=== PATIENT | male | born 1985 | race Caucasian/White ===

== ENCOUNTER 2017-01-22 23:42 | Emergency (ER) | payer OTHER ==
[2017-01-22 23:50] VITALS: BP 156/62; PULSE 80; RESP 18; TEMP 98.9
[2017-01-22] MEDS ORDERED: LIDOCAINE VISCOUS 300 MG/15 ML CUP MUCOUS MEM STA (23:58)
--- NOTE | 2017-01-23 00:02 | ED ---
ENT HPI - General Chief complaint: Dental/Oral Stated complaint: Dental Pain Time Seen by Provider: 01/22/17 23:50 Source: patient, RN notes reviewed Mode of arrival: ambulatory Limitations: no limitations - History of Present Illness Initial comments: Patient is a 31-year-old male presents to the emergency room for evaluation of left lower dental pain. Patient states he began having dental pain about 2 weeks ago. Patient states he noticed an abscess forming over his left lower tooth. Patient states that the abscess began to drain. Patient states he noticed a second abscess forming in his front portion of his bottom teeth. Patient states abscess has not drained yet. Patient states he has not seen a dentist yet. Patient denies trouble swallowing. Patient denies fevers or chills. Patient denies headache or dizziness. Patient denies throat pain. Patient denies recent dental trauma. - Related Data Previous Rx's Medication Instructions Recorded HYDROcodone/APAP 5-325MG [[place] 1 tab PO Q6HR PRN #12 tab 01/23/17 5-325] Penicillin V Potassium [Pen Vee K] 500 mg PO QID #28 tab 01/23/17 Allergies Allergy/AdvReac Type Severity Reaction Status Date / Time No Known Allergies Allergy Verified 01/22/17 23:48 Review of Systems ROS Statement: Those systems with pertinent positive or pertinent negative responses have been documented in the HPI. ROS Other: All systems not noted in ROS Statement are negative. Past Medical History Past Medical History: No Reported History History of Any Multi-Drug Resistant Organisms: None Reported Past Surgical History: Adenoidectomy, Ear Surgery, Hernia Repair, Tonsillectomy Past Psychological History: No Psychological Hx Reported Smoking Status: Current every day smoker Past Alcohol Use History: None Reported Past Drug Use History: Marijuana General Exam - General Exam Comments Initial Comments: Sitting in exam room, no acute distress. Limitations: no limitations General appearance: alert, in no apparent distress Head exam: Present: atraumatic, normocephalic, normal inspection Expanded Mouth exam: Present: normal external inspection Teeth exam: Present: dental caries, dental tenderness # (19; 24/25), gingival enlargement (anterior portion of teeth #24/25 with slight fluctuance) Throat exam: normal inspection Neck exam: Present: normal inspection Respiratory exam: Absent: respiratory distress Extremities exam: Present: normal inspection Back exam: Present: normal inspection Neurological exam: Present: alert, oriented X3, CN II-XII intact, normal gait Psychiatric exam: Present: normal affect, normal mood Skin exam: Present: warm, dry, intact, normal color. Absent: rash Course Vital Signs 01/22/17 01/23/17 23:48 01:03 Temperature 98.9 F 98.9 F Pulse Rate 80 80 Respiratory 18 18 Rate Blood Pressure 156/62 156/62 O2 Sat by Pulse 98 98 Oximetry Procedures - Incision & Drainage Consent Obtained: verbal consent Site: other (dental abscess) Size (cm): 1 Anesthetic Used: lidocaine 1% (viscous lidocaine) Amount (mLs): 5 Sterile Field Used?: No Needle Aspiration Performed?: Yes I&D Drainage Obtained: Pus, Blood Patient Tolerated Procedure: well, no complications Medical Decision Making - Medical Decision Making Patient is a 31-year-old male presents to the emergency room for evaluation of dental abscess. Abscess was incised and drained. Patient placed on antibiotics and advised to follow-up with a dentist. Patient states he understands everything that was discussed with him. Return parameters discussed. Case discussed with Dr. Camarena. Disposition Clinical Impression: Pain, dental, Dental abscess Disposition: HOME SELF-CARE Condition: Good Instructions: Dental Abscess (ED), Toothache (ED) Additional Instructions: Please follow up with a dentist. If you do not have a dentist, you may contact [facility]. Phone number is [phone] for existing clients. For new clients you may call [phone]. Another option is you have is the [employer] [facility]. Phone number is [phone]. Medications as directed. Saltwater gargles. Cold fluids can sometimes help with pain as well. Return to the Emergency Room for any worsening or changing symptoms. Use cold compresses to the outside of the face. Prescriptions: HYDROcodone/APAP 5-325MG [[place] 5-325] 1 tab PO Q6HR PRN #12 tab PRN Reason: Pain Penicillin V Potassium [Pen Vee K] 500 mg PO QID #28 tab Referrals: None,Stated [Primary Care Provider] - 1-2 days Time of Disposition: 00:36
== END 2017-01-23 01:02 | disposition home or self-care (01) ==
LOC: EC 23:42
DX: K04.7 Periapical abscess without sinus (principal); F17.200 Nicotine dependence, unspecified, uncomplicated
CPT/HCPCS: 41800; 99282

== ENCOUNTER 2017-03-01 09:50 | Emergency (ER) | payer OTHER ==
--- NOTE | 2017-03-01 10:40 | ED ---
General Adult HPI - General Chief complaint: Wound/Laceration Stated complaint: LACERATION RT ARM Time Seen by Provider: 03/01/17 09:59 Source: patient, RN notes reviewed Mode of arrival: wheelchair Limitations: no limitations - Related Data Previous Rx's Medication Instructions Recorded Cephalexin [Keflex] 500 mg PO Q12HR 5 Days 03/01/17 Allergies Allergy/AdvReac Type Severity Reaction Status Date / Time No Known Allergies Allergy Verified 03/01/17 10:27 Review of Systems ROS Statement: Those systems with pertinent positive or pertinent negative responses have been documented in the HPI. ROS Other: All systems not noted in ROS Statement are negative. Past Medical History Past Medical History: No Reported History History of Any Multi-Drug Resistant Organisms: None Reported Past Surgical History: Adenoidectomy, Ear Surgery, Hernia Repair, Tonsillectomy Past Psychological History: No Psychological Hx Reported Smoking Status: Current every day smoker Past Alcohol Use History: Rare Past Drug Use History: Marijuana General Exam Limitations: no limitations Course Vital Signs 03/01/17 09:53 Temperature 97.2 F L Pulse Rate 97 Respiratory 18 Rate Blood Pressure 146/72 O2 Sat by Pulse 97 Oximetry Disposition Clinical Impression: Laceration Disposition: HOME SELF-CARE Condition: Good Instructions: Laceration (ED) Additional Instructions: Please return to the emergency room in 8-10 days to have sutures removed. Please watch for any signs of infection which may include increased pain, swelling, redness, fever or chills. Please return to emergency room for any signs of infection do occur. Please use clean soap and water over the area to prevent scabbing over your stitches. Please leave wound covered for the first 24-48 hours and then leave wound open to air. Please return to the emergency room for any other concerns. Prescriptions: Cephalexin [Keflex] 500 mg PO Q12HR 5 Days Referrals: None,Stated [Primary Care Provider] - 1-2 days Time of Disposition: 10:37
[2017-03-01 10:54] VITALS: BP 138/68; PULSE 80; RESP 15; TEMP 98.8
== END 2017-03-01 11:04 | disposition home or self-care (01) ==
LOC: EC 09:50
DX: S51.811A Laceration without foreign body of right forearm, initial encounter (principal); F17.200 Nicotine dependence, unspecified, uncomplicated; W45.8XXA Other foreign body or object entering through skin, initial encounter
CPT/HCPCS: 12001; 99282

== ENCOUNTER 2018-12-11 03:31 | Emergency (ER) | payer OTHER ==
[2018-12-11] MEDS ORDERED: MORPHINE SULFATE 4 MG/ML SYRINGE IVP STA (03:37)
[2018-12-11] MEDS ORDERED: ceFAZolin 1,000 MG in DEXTROSE/WATER 1 50ML.BAG IVPB STA (03:37)
[2018-12-11] MEDS ORDERED: DIPH,PERTUS(ACELL)TETVAC-LF 0.5 ML VIAL IM ONE (03:37)
[2018-12-11] MEDS ORDERED: MORPHINE SULFATE 2 MG/ML SYRINGE IVP STA (03:44)
[2018-12-11] MEDS ORDERED: HYDROmorphone 1 MG/ML 1 ML SYRINGE IVP STA ×2 (03:49→04:19)
[2018-12-11] MEDS ORDERED: SODIUM CHLORIDE 0.9% 1,000 ML IV STA ×2 (03:49)
[2018-12-11 03:52] VITALS: RESP 18; TEMP 98.2
[2018-12-11 03:57] VITALS: BP 162/103; PULSE 88
[2018-12-11 04:02] LABS: Basophils # (A) 0.1 k/uL (0-0.2); Basophils % (A) 1 %; Eosinophils # (A) 0.2 k/uL (0-0.7); Eosinophils % (A) 2 %; HCT 44.3 % (39.0-53.0); HGB 13.8 gm/dL (13.0-17.5); Lymphocytes % (A) 39 %; MCH 28.1 pg (25.0-35.0); MCV 90.6 fL (80.0-100.0); Mean Platelet Volume 6.7; Monocytes # (A) 0.7 k/uL (0-1.0); Monocytes % (A) 7 %; Neutrophils % (A) 49 %; Platelet Count 322 k/uL (150-450); RBC 4.89 m/uL (4.30-5.90); RDW 13.6 % (11.5-15.5); WBC 10.3 k/uL (3.8-10.6)
--- NOTE | 2018-12-11 04:07 | XR ---
EXAM: XR Right Hand Complete, 3 or More Views CLINICAL HISTORY: ITS.REASON XR Reason: Pain TECHNIQUE: Frontal, lateral and oblique views of the right hand. COMPARISON: No relevant prior studies available. FINDINGS: Bones/joints: Fracture/partial amputation injuries at the distal phalanges of the second and third digit. Soft tissues: Extensive deformity to the soft tissues of the right hand including prominent defects extending to the bone at the first digit on the second digit, and third digit. Ill-defined linear increased density foci within the soft tissues at the base of the second digit. Diffuse soft tissue air and palmar swelling. IMPRESSION: 1. Partial bony amputation at the second and third distal phalanges. 2. Severe soft tissue injury/deformity as noted, with partial degloving appearance of the first, second, and third digit. Nonspecific clustered linear densities at the palmar base of the second digit could suggest foreign bodies.
[2018-12-11 04:11] LABS: ALT 28 U/L (21-72); AST 26 U/L (17-59); Alcohol <10 mg/dL; Alkaline Phosphatase 56 U/L (38-126); Anion Gap 18 mmol/L; Blood Urea Nitrogen 11 mg/dL (9-20); Calcium 9.8 mg/dL (8.4-10.2); Carbon Dioxide 21 mmol/L (22-30); Chloride 102 mmol/L (98-107); Glucose 134 mg/dL (74-99); Potassium 3.6 mmol/L (3.5-5.1); Sodium 141 mmol/L (137-145); Total Bilirubin 0.8 mg/dL (0.2-1.3); Total Protein 7.7 g/dL (6.3-8.2)
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
[2018-12-11 04:16] LABS: Partial Thromboplastin Time 23.2 sec (22.0-30.0); Prothrombin Time 10.7 sec (9.0-12.0)
== END 2018-12-11 04:20 | disposition other institution (70) ==
LOC: EC 03:31
DX: S68.021A Partial traumatic metacarpophalangeal amputation of right thumb, initial encounter (principal); S68.120A Partial traumatic metacarpophalangeal amputation of right index finger, initial encounter; S68.122A Partial traumatic metacarpophalangeal amputation of right middle finger, initial encounter; F17.200 Nicotine dependence, unspecified, uncomplicated; W23.0XXA Caught, crushed, jammed, or pinched between moving objects, initial encounter; Y92.89 Other specified places as the place of occurrence of the external cause; Z23 Encounter for immunization
CPT/HCPCS: 36415; 86900; 86901; 80053; 84484; 85025; 85610; 85730; 86850; 73130; 90715; 99285; 96365; 96375 ×2; 96361; 90471; G0480; J2270 ×2; J1170; J0690; 80320

== ENCOUNTER 2019-12-14 04:59 | Emergency (ER) | payer OTHER ==
[2019-12-14 05:07] VITALS: BP 145/80; PULSE 75; RESP 20; TEMP 97.7
[2019-12-14] MEDS ORDERED: PENICILLIN VK 500MG STARTER 4 TAB BTL PO STA (05:43)
[2019-12-14] MEDS ORDERED: LIDOCAINE 2% INJ 20 MG/ML (20 ML MDV) SQ STA (05:43)
[2019-12-14] MEDS ORDERED: BUPIVACAINE (PF) 0.5% 30 ML VIAL SQ STA (05:43)
--- NOTE | 2019-12-14 06:17 | ED ---
ENT HPI - General Chief complaint: Dental/Oral Stated complaint: Oral Pain/Abcess Time Seen by Provider: 12/14/19 05:07 Source: patient, family Mode of arrival: ambulatory Limitations: no limitations - History of Present Illness MD complaint: tooth pain Onset/Timin -: hour(s) Severity: severe Severity scale (1-10): 8 Quality: aching Consistency: constant Improves with: cold therapy Worsens with: none Context- Dental: history of dental caries Associated Symptoms: gum swelling, toothache - Related Data Previous Rx's Medication Instructions Recorded Cephalexin [Keflex] 500 mg PO Q12HR 5 Days cap 03/01/17 Penicillin V Potassium [Pen Vee K] 500 mg PO Q6H #40 tablet 12/14/19 Allergies Allergy/AdvReac Type Severity Reaction Status Date / Time No Known Allergies Allergy Verified 12/14/19 05:06 Review of Systems ROS Statement: Those systems with pertinent positive or pertinent negative responses have been documented in the HPI. ROS Other: All systems not noted in ROS Statement are negative. Constitutional: Denies: fever, chills Eyes: Denies: eye pain ENT: Denies: throat pain Respiratory: Denies: dyspnea Neurological: Denies: headache Hematological/Lymphatic: Denies: easy bleeding Past Medical History Past Medical History: Hypertension, Thyroid Disorder History of Any Multi-Drug Resistant Organisms: None Reported Past Surgical History: Adenoidectomy, Ear Surgery, Hernia Repair, Orthopedic Surgery, Tonsillectomy Past Psychological History: No Psychological Hx Reported Smoking Status: Current every day smoker Past Alcohol Use History: Rare Past Drug Use History: Marijuana, Opiates, Prescription Drug Abuse General Exam Limitations: no limitations General appearance: alert, in no apparent distress Head exam: Present: atraumatic, normocephalic Eye exam: Present: normal appearance ENT exam: Present: mucous membranes moist Expanded Teeth exam: Present: dental caries, other (Dental abscess adjacent to tooth 19,20.) Throat exam: normal inspection Neck exam: Present: normal inspection, full ROM, other (There is no neck or sublingual fullness). Absent: meningismus, lymphadenopathy Neurological exam: Present: alert Skin exam: Present: warm, dry, intact, normal color. Absent: rash Course Vital Signs 12/14/19 05:02 Temperature 97.7 F Pulse Rate 75 Respiratory 20 Rate Blood Pressure 145/80 O2 Sat by Pulse 100 Oximetry Procedures - Incision & Drainage Consent Obtained: verbal consent Site: oral Anesthetic Used: benzocaine 0.25%, lidocaine 2% Scalpel Used: #11 I&D Drainage Obtained: Pus Patient Tolerated Procedure: well, no complications Disposition Clinical Impression: Dental abscess, Dental caries Disposition: HOME SELF-CARE Instructions (If sedation given, give patient instructions): Dental Abscess (ED), Toothache (ED) Prescriptions: Penicillin V Potassium [Pen Vee K] 500 mg PO Q6H #40 tablet Is patient prescribed a controlled substance at d/c from ED?: No Referrals: Valerio Van MD [Primary Care Provider] - 1-2 days
== END 2019-12-14 06:22 | disposition home or self-care (01) ==
LOC: EC 04:59
DX: K04.7 Periapical abscess without sinus (principal); K02.9 Dental caries, unspecified; F17.200 Nicotine dependence, unspecified, uncomplicated
CPT/HCPCS: 99282; 41800; J2001

== ENCOUNTER 2020-12-09 15:56 | Emergency (ER) | payer OTHER ==
[2020-12-09] MEDS ORDERED: fentaNYL (PF) 50 MCG/ML 2 ML AMP IVP PRN (16:03)
[2020-12-09] MEDS ORDERED: HYDROmorphone 1 MG/ML 1 ML SYRINGE IVP STA (16:06)
[2020-12-09] MEDS ORDERED: SODIUM CHLORIDE 0.9% 1,000 ML IV STA ×2 (16:08→16:40)
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
[2020-12-09] MEDS: KETAMINE 10 MG/ML 20 ML VIAL IV STA ×4 (16:17→16:55)
[2020-12-09 16:28] LABS: Basophils # (A) 0.1 k/uL (0-0.2); Basophils % (A) 1 %; Eosinophils # (A) 0.2 k/uL (0-0.7); Eosinophils % (A) 2 %; HCT 39.3 % (39.0-53.0); HGB 12.6 gm/dL (13.0-17.5); Lymphocytes # (A) 2.8 k/uL (1.0-4.8); Lymphocytes % (A) 25 %; MCH 28.4 pg (25.0-35.0); MCV 88.9 fL (80.0-100.0); Mean Platelet Volume 6.8; Monocytes # (A) 0.7 k/uL (0-1.0); Monocytes % (A) 6 %; Neutrophils % (A) 64 %; Platelet Count 334 k/uL (150-450); RBC 4.42 m/uL (4.30-5.90); RDW 13.5 % (11.5-15.5); WBC 10.9 k/uL (3.8-10.6)
[2020-12-09 16:37] LABS: Glucose,Whole Blood 98 mg/dL (75-99)
[2020-12-09 16:37] LABS: African American GFR (CKD) >90 (>60 ml/min/1.73 sqM); Anion Gap 10 mmol/L; Blood Urea Nitrogen 18 mg/dL (9-20); Calcium 9.5 mg/dL (8.4-10.2); Carbon Dioxide 25 mmol/L (22-30); Chloride 103 mmol/L (98-107); Glucose 190 mg/dL (74-99); Non-African American GFR(CKD) >90 (>60 ml/min/1.73 sqM); Potassium 4.2 mmol/L (3.5-5.1); Sodium 138 mmol/L (137-145)
[2020-12-09] MEDS ORDERED: KETAMINE 50 MG/ML 10 ML VIAL IV STA ×2 (16:37→16:54)
[2020-12-09 16:44] LABS: INR 0.9 (<1.2); Partial Thromboplastin Time 25.2 sec (22.0-30.0); Prothrombin Time 9.9 sec (9.0-12.0)
== END 2020-12-09 16:57 | disposition other institution (70) ==
LOC: EC 15:56
DX: T20.10XA Burn of first degree of head, face, and neck, unspecified site, initial encounter (principal); T22.211A Burn of second degree of right forearm, initial encounter; T22.212A Burn of second degree of left forearm, initial encounter; T24.131A Burn of first degree of right lower leg, initial encounter; T31.0 Burns involving less than 10% of body surface; X04.XXXA Exposure to ignition of highly flammable material, initial encounter
CPT/HCPCS: 36415; 80048; 85025; 85610; 85730; 99291; 96374; 96375; 96376; 96361; J3010; J1170

== ENCOUNTER 2021-09-24 17:22 | Observation (INO) | payer OTHER ==
--- NOTE | 2021-09-24 18:07 | ED ---
General Adult HPI - General Chief complaint: Recheck/Abnormal Lab/Rx Stated complaint: Jaundice Time Seen by Provider: 09/24/21 17:56 Source: patient, police, RN notes reviewed Mode of arrival: ambulatory Limitations: no limitations - History of Present Illness Initial comments: Patient is a pleasant 36-year-old male presenting [facility] emergency department [facility] for jaundice discoloration of the skin. Patient has no history of similar symptoms previously. No history of previous liver disease. A abad does not drink much alcohol. Patient does have history of IV drug use. Patient noticed darkness of the urine over the past week. Patient noticed skin discoloration approximately 3 days ago. Patient has mild abdominal bloating otherwise no pain. No diarrhea or vomiting. - Related Data Home Medications Medication Instructions Recorded Confirmed Mirtazapine [Remeron] 30 mg PO HS 09/24/21 09/24/21 QUEtiapine [SEROquel] 50 mg PO DAILY 09/24/21 09/24/21 QUEtiapine [SEROquel] 100 mg PO HS 09/24/21 09/24/21 hydrOXYzine pamoate [Vistaril] 100 mg PO TID 09/24/21 09/24/21 Allergies Allergy/AdvReac Type Severity Reaction Status Date / Time No Known Allergies Allergy Verified 09/24/21 19:32 Review of Systems ROS Statement: Those systems with pertinent positive or pertinent negative responses have been documented in the HPI. ROS Other: All systems not noted in ROS Statement are negative. Constitutional: Denies: fever, chills Eyes: Denies: eye pain ENT: Denies: ear pain Respiratory: Denies: cough, dyspnea Cardiovascular: Denies: chest pain Endocrine: Denies: fatigue Gastrointestinal: Reports: as per HPI. Denies: nausea, vomiting, diarrhea Genitourinary: Reports: as per HPI Musculoskeletal: Denies: back pain Skin: Reports: as per HPI, rash Neurological: Denies: weakness Past Medical History Past Medical History: Hypertension, Thyroid Disorder History of Any Multi-Drug Resistant Organisms: None Reported Past Surgical History: Adenoidectomy, Ear Surgery, Hernia Repair, Orthopedic Surgery, Tonsillectomy Past Psychological History: No Psychological Hx Reported Smoking Status: Never smoker Past Alcohol Use History: Rare Past Drug Use History: Marijuana, Opiates, Prescription Drug Abuse General Exam Limitations: no limitations General appearance: alert, in no apparent distress Head exam: Present: normocephalic Eye exam: Present: scleral icterus Neck exam: Present: normal inspection Respiratory exam: Present: normal lung sounds bilaterally Cardiovascular Exam: Present: regular rate, normal rhythm GI/Abdominal exam: Present: soft, normal bowel sounds. Absent: distended, tenderness, guarding, rebound, rigid Extremities exam: Present: normal inspection Neurological exam: Present: alert, oriented X3 Psychiatric exam: Present: normal affect, normal mood Skin exam: Present: other (Jaundice) Course Vital Signs 09/24/21 17:30 Temperature 98.8 F Pulse Rate 78 Respiratory 20 Rate Blood Pressure 159/81 O2 Sat by Pulse 100 Oximetry - Reevaluation(s) Reevaluation #1: 09/24/21 20:14 Case was discussed with Dr. Bailon who would prefer transfer secondary to no GI coverage. 09/24/21 20:25 Case was discussed with transfer team, nurse Arevalo at [facility] who would like to know covid status prior to discussing with their medical case worker for possible transfer. This is been ordered at this time[facility] [place] [facility] at this time. 09/24/21 20:26 Case will be endorsed to Dr. Raymundo for final disposition. Medical Decision Making - Lab Data Result diagrams: 09/24/21 18:43 09/24/21 18:43 Lab Results 09/24/21 09/24/21 09/24/21 Range/Units 18:43 18:43 18:43 WBC 7.3 (3.8-10.6) k/uL RBC 4.99 (4.30-5.90) m/uL Hgb 14.8 (13.0-17.5) gm/dL Hct 46.1 (39.0-53.0) % MCV 92.3 (80.0-100.0) fL MCH 29.6 (25.0-35.0) pg MCHC 32.1 (31.0-37.0) g/dL RDW 15.4 (11.5-15.5) % Plt Count 258 (150-450) k/uL MPV 7.6 Neutrophils % Not Reportable Neutrophils % (Manual) 45 % Band Neuts % (Manual) 5 % Lymphocytes % Not Reportable Lymphocytes % (Manual) 39 % Monocytes % Not Reportable Monocytes % (Manual) 7 % Eosinophils % Not Reportable Eosinophils % (Manual) 3 % Basophils % Not Reportable Basophils % (Manual) 1 % Neutrophils # Not Reportable Neutrophils # (Manual) 3.60 (1.3-7.7) k/uL Lymphocytes # Not Reportable Lymphocytes # (Manual) 2.85 (1.0-4.8) k/uL Monocytes # Not Reportable Monocytes # (Manual) 0.51 (0-1.0) k/uL Eosinophils # Not Reportable Eosinophils # (Manual) 0.22 (0-0.7) k/uL Basophils # Not Reportable Basophils # (Manual) 0.07 (0-0.2) k/uL Nucleated RBCs 0 (0-0) /100 WBC Manual Slide Review Performed Hypochromasia Slight Poikilocytosis (manual Present Target Cells Present Fragmented RBCs Present PT 11.7 (9.0-12.0) sec INR 1.1 (<1.2) APTT 27.3 (22.0-30.0) sec Sodium (137-145) mmol/L Potassium (3.5-5.1) mmol/L Chloride (98-107) mmol/L Carbon Dioxide (22-30) mmol/L Anion Gap mmol/L BUN (9-20) mg/dL Creatinine (0.66-1.25) mg/dL Est GFR (CKD-EPI)AfAm (>60 ml/min/1.73 sqM) Est GFR (CKD-EPI)NonAf (>60 ml/min/1.73 sqM) Glucose (74-99) mg/dL Calcium (8.4-10.2) mg/dL Total Bilirubin (0.2-1.3) mg/dL AST (17-59) U/L ALT (4-49) U/L Alkaline Phosphatase (38-126) U/L Total Protein (6.3-8.2) g/dL Albumin (3.5-5.0) g/dL Amylase (30-110) U/L Lipase (23-300) U/L Urine Color Dark Yellow Urine Appearance Clear (Clear) Urine pH 6.5 (5.0-8.0) Ur Specific [place] 1.020 (1.001-1.035) Urine Protein Negative (Negative) Urine Glucose (UA) Negative (Negative) Urine Ketones Negative (Negative) Urine Blood Negative (Negative) Urine Nitrite Negative (Negative) Urine Bilirubin 2+ H (Negative) Urine Urobilinogen 4.0 (<2.0) mg/dL Ur Leukocyte Esterase Negative (Negative) 09/24/21 Range/Units 18:43 WBC (3.8-10.6) k/uL RBC (4.30-5.90) m/uL Hgb (13.0-17.5) gm/dL Hct (39.0-53.0) % MCV (80.0-100.0) fL MCH (25.0-35.0) pg MCHC (31.0-37.0) g/dL RDW (11.5-15.5) % Plt Count (150-450) k/uL MPV Neutrophils % Neutrophils % (Manual) % Band Neuts % (Manual) % Lymphocytes % Lymphocytes % (Manual) % Monocytes % Monocytes % (Manual) % Eosinophils % Eosinophils % (Manual) % Basophils % Basophils % (Manual) % Neutrophils # Neutrophils # (Manual) (1.3-7.7) k/uL Lymphocytes # Lymphocytes # (Manual) (1.0-4.8) k/uL Monocytes # Monocytes # (Manual) (0-1.0) k/uL Eosinophils # Eosinophils # (Manual) (0-0.7) k/uL Basophils # Basophils # (Manual) (0-0.2) k/uL Nucleated RBCs (0-0) /100 WBC Manual Slide Review Hypochromasia Poikilocytosis (manual Target Cells Fragmented RBCs PT (9.0-12.0) sec INR (<1.2) APTT (22.0-30.0) sec Sodium 138 (137-145) mmol/L Potassium 4.4 (3.5-5.1) mmol/L Chloride 104 (98-107) mmol/L Carbon Dioxide 26 (22-30) mmol/L Anion Gap 8 mmol/L BUN 13 (9-20) mg/dL Creatinine 0.94 (0.66-1.25) mg/dL Est GFR (CKD-EPI)AfAm >90 (>60 ml/min/1.73 sqM) Est GFR (CKD-EPI)NonAf >90 (>60 ml/min/1.73 sqM) Glucose 134 H (74-99) mg/dL Calcium 9.0 (8.4-10.2) mg/dL Total Bilirubin 6.5 H (0.2-1.3) mg/dL AST 1281 H (17-59) U/L ALT 2135 H (4-49) U/L Alkaline Phosphatase 186 H (38-126) U/L Total Protein 7.1 (6.3-8.2) g/dL Albumin 3.9 (3.5-5.0) g/dL Amylase 64 (30-110) U/L Lipase 72 (23-300) U/L Urine Color Urine Appearance (Clear) Urine pH (5.0-8.0) Ur Specific [place] (1.001-1.035) Urine Protein (Negative) Urine Glucose (UA) (Negative) Urine Ketones (Negative) Urine Blood (Negative) Urine Nitrite (Negative) Urine Bilirubin (Negative) Urine Urobilinogen (<2.0) mg/dL Ur Leukocyte Esterase (Negative) - Radiology Data Radiology results: report reviewed (Ultrasound shows hepatomegaly. No gallstones or dilated ducts. No focal liver defect.) Disposition Clinical Impression: Acute hepatitis Disposition: OTHER INSTITUTION NOT DEFINED Is patient prescribed a controlled substance at d/c from ED?: No Referrals: None,Stated [Primary Care Provider] - 1-2 days Decision Time: 20:26 - Out of Hospital Transfer - Req. Specs Out of Hospital Transfer - Requested Specifics: Other Emergency Center
--- NOTE | 2021-09-24 19:03 | US ---
EXAMINATION TYPE: US gallbladder DATE OF EXAM: 09/24/2021 COMPARISON: NONE CLINICAL HISTORY: jaundice. Jaundice EXAM MEASUREMENTS: Liver Length: 22 cm Gallbladder Wall: 0.3 cm CBD: 0.3 cm Right Kidney: 10.0 x 4.7 x 5.3 cm Pancreas: 3mm duct visualized, tail obscured by overlying bowel gas Liver: Enlarged Gallbladder: Contracted, pt states he is NPO Evidence for sonographic Garcia's sign: NO CBD: wnl Right Kidney: No evidence of hydro, mid to lower pole gassed out IMPRESSION: No gallstones or dilated ducts. No focal liver defect. hepatomegaly.
[2021-09-24 19:17] LABS: HCT 46.1 % (39.0-53.0); HGB 14.8 gm/dL (13.0-17.5); Hypochromasia Slight; MCH 29.6 pg (25.0-35.0); MCHC 32.1 g/dL (31.0-37.0); MCV 92.3 fL (80.0-100.0); Mean Platelet Volume 7.6; Platelet Count 258 k/uL (150-450); RBC 4.99 m/uL (4.30-5.90); RDW 15.4 % (11.5-15.5); WBC 7.3 k/uL (3.8-10.6)
[2021-09-24 19:22] LABS: African American GFR (CKD) >90 (>60 ml/min/1.73 sqM); Albumin 3.9 g/dL (3.5-5.0); Alkaline Phosphatase 186 U/L (38-126); Amylase 64 U/L (30-110); Anion Gap 8 mmol/L; Blood Urea Nitrogen 13 mg/dL (9-20); Carbon Dioxide 26 mmol/L (22-30); Chloride 104 mmol/L (98-107); Glucose 134 mg/dL (74-99); Lipase 72 U/L (23-300); Non-African American GFR(CKD) >90 (>60 ml/min/1.73 sqM); Potassium 4.4 mmol/L (3.5-5.1); Sodium 138 mmol/L (137-145); Total Bilirubin 6.5 mg/dL (0.2-1.3); Total Protein 7.1 g/dL (6.3-8.2)
[2021-09-24 19:30] LABS: ALT 2135 U/L (4-49); AST 1281 U/L (17-59)
[2021-09-24 19:49] LABS: Appearance,Urine Clear (Clear); Bilirubin,Urine 2+ (Negative); Blood,Urine Negative (Negative); Color,Urine Dark Yellow; Glucose,Urine (UA) Negative (Negative); Ketones,Urine Negative (Negative); Leukocyte Esterase,Urine Negative (Negative); Nitrite,Urine Negative (Negative); PH, Urine 6.5 (5.0-8.0); Protein,Urine Negative (Negative)
[2021-09-24 20:00] LABS: Band Neutrophils % 5 %; Basophils # (M) 0.07 k/uL (0-0.2); Eosinophils # (M) 0.22 k/uL (0-0.7); Lymphocytes # (M) 2.85 k/uL (1.0-4.8); Monocytes # (M) 0.51 k/uL (0-1.0); Neutrophils % (M) 45 %; Nucleated Red Blood Cells 0 /100 WBC (0-0); Target Cells Present; Total Cells Counted 100
[2021-09-24 20:01] LABS: RBC Fragments Present
[2021-09-24 20:06] LABS: Poikilocytosis (M) Present
[2021-09-24 20:18] LABS: INR 1.1 (<1.2); Partial Thromboplastin Time 27.3 sec (22.0-30.0); Prothrombin Time 11.7 sec (9.0-12.0)
[2021-09-24 23:15] LABS: Lactic Acid, Venous 0.6 mmol/L (0.7-2.0)
[2021-09-24 23:16] LABS: Acetaminophen <10.0 ug/mL; Alcohol <10 mg/dL; Salicylate <1.0 mg/dL
--- NOTE | 2021-09-24 23:16 | CT ---
EXAMINATION TYPE: CT angio abdomen pelvis DATE OF EXAM: 09/24/2021 COMPARISON: None HISTORY: Pt is jaundice possible portal thrombosis. CT DLP: 754.4 mGycm Automated exposure control for dose reduction was used. CONTRAST: Performed with IV Contrast, patient injected with 100 mL of Isovue 370. Images obtained from the diaphragm to the floor the pelvis with IV contrast and Three-D postprocessed images. The contrast was Isovue 100 mL. FINDINGS: Lung bases are clear. There is no pleural effusion. Heart size is normal. There is no pericardial eff usion. Liver spleen and stomach pancreas appear intact. There is some fluid around the gallbladder. The bile ducts are not dilated. There is no adrenal mass. Kidneys show satisfactory contrast opacific ation. There is no hydronephrosis. Ureters are not dilated. There is no retroperitoneal adenopathy. T he bladder distends smoothly. There is no inguinal hernia. There is no mesenteric edema. There is no ascites or free air. There is no bowel obstruction. There i s retained fecal material in the large bowel. There is arterial contrast opacification of the abdominal aorta. There is arterial flow in the celiac artery and superior mesenteric artery. There is arterial flow in the renal and iliac and femoral art eries. There is no evidence of stenosis. There is no evidence of aneurysm or neovascularity. There is no contrast extravasation. The lumbar vertebrae are normal alignment. Posterior elements are intact there is no compression frac ture. Bony pelvis is intact. The hip joints are intact. Appendix is posterior and appears normal. IMPRESSION: No angiographic abnormality. There is some fluid around the gallbladder that could relate to cholecys titis. No focal liver defect. Unfortunately there is no venous phase exam and portal vein thrombosis cannot be evaluated on this exam. If there is persistent clinical indication contrast exam with delay ed venous phase images recommended. No evidence of enlarged portal venous system.
[2021-09-24 23:38] LABS: Phosphorus 4.5 mg/dL (2.5-4.5)
[2021-09-24 23:47] LABS: Hepatitis A Antibody IgM Nonreactive (Nonreactive); Hepatitis B Core IgM Reactive (Nonreactive); Hepatitis B Surface Antigen Nonreactive (Nonreactive); Hepatitis C IgG Antibody Reactive (Nonreactive)
--- NOTE | 2021-09-25 00:01 | US ---
EXAMINATION TYPE: US liver doppler DATE OF EXAM: 09/24/2021 COMPARISON: Same day US & CT CLINICAL HISTO RY: jaundice, thrombosis. Jaundice EXAM MEASUREMENTS: Liver Length: 21 cm Gallbladder Wall: 0.3 cm CBD: 0.4 cm Right Kidney: 10.0 x 4.5 x 5.5 cm RUQ ABDOMINAL ULTRASOUND Pancreas: 3mm panc duct visualized, tail obscured by overlying bowel gas Liver: Enlarged Gallbladder: lumen clear, wall thickness upper limits of normal ?possible small amount of pericholec ystic fluid Evidence for sonographic Garcia's sign: No CBD: wnl Right Kidney: wnl, lower pole gassed out Ascites noted? No LIVER DOPPLER ULTRASOUND Portal vein: wnl Flow direction: Hepatopetal Color flow patency seen within the main portal vein: Yes Main portal vein shows a monophasic waveform: Yes Color flow patency seen within the right portal vein: Yes Right portal vein shows a monophasic waveform:Yes Hepatic Artery: wnl Hepatic Veins: wnl Color flow patency seen within the right hepatic vein: Yes Color flow patency seen within the middle hepatic vein: Yes Color flow patency seen within the left hepatic vein: Yes IMPRESSION: There is no evidence of portal venous thrombosis. No focal liver defect. Mild hepatomegaly. No dilate d ducts. Small amount of pericholecystic fluid suggestive of some nonspecific inflammation.
[2021-09-25] MEDS ORDERED: ONDANSETRON 4 MG/2 ML VIAL IVP PRN (00:45)
[2021-09-25] MEDS ORDERED: LORazepam 2 MG/ML INJ IV PRN (00:45)
[2021-09-25] MEDS ORDERED: NALOXONE 0.4 MG/ML 1 ML VIAL IV PRN (00:45)
--- NOTE | 2021-09-25 00:48 | ED ---
Medical Decision Making - Medical Decision Making 36 male to the emergency department today. Patient will be admitted to our hospital for evaluation regarding significant hepatitis from both hepatitis B and hepatitis C, consult of infectious disease, IV hydration symptom management. Did speak with [facility] who did refer diffuse transfer at this point Spoke with patient updated and results and findings Patient is without complaint - Lab Data Result diagrams: 09/24/21 18:43 09/24/21 18:43 Lab Results 09/24/21 09/24/21 09/24/21 Range/Units 18:43 18:43 18:43 WBC 7.3 (3.8-10.6) k/uL RBC 4.99 (4.30-5.90) m/uL Hgb 14.8 (13.0-17.5) gm/dL Hct 46.1 (39.0-53.0) % MCV 92.3 (80.0-100.0) fL MCH 29.6 (25.0-35.0) pg MCHC 32.1 (31.0-37.0) g/dL RDW 15.4 (11.5-15.5) % Plt Count 258 (150-450) k/uL MPV 7.6 Neutrophils % Not Reportable Neutrophils % (Manual) 45 % Band Neuts % (Manual) 5 % Lymphocytes % Not Reportable Lymphocytes % (Manual) 39 % Monocytes % Not Reportable Monocytes % (Manual) 7 % Eosinophils % Not Reportable Eosinophils % (Manual) 3 % Basophils % Not Reportable Basophils % (Manual) 1 % Neutrophils # Not Reportable Neutrophils # (Manual) 3.60 (1.3-7.7) k/uL Lymphocytes # Not Reportable Lymphocytes # (Manual) 2.85 (1.0-4.8) k/uL Monocytes # Not Reportable Monocytes # (Manual) 0.51 (0-1.0) k/uL Eosinophils # Not Reportable Eosinophils # (Manual) 0.22 (0-0.7) k/uL Basophils # Not Reportable Basophils # (Manual) 0.07 (0-0.2) k/uL Nucleated RBCs 0 (0-0) /100 WBC Manual Slide Review Performed Hypochromasia Slight Poikilocytosis (manual Present Target Cells Present Fragmented RBCs Present PT 11.7 (9.0-12.0) sec INR 1.1 (<1.2) APTT 27.3 (22.0-30.0) sec Sodium (137-145) mmol/L Potassium (3.5-5.1) mmol/L Chloride (98-107) mmol/L Carbon Dioxide (22-30) mmol/L Anion Gap mmol/L BUN (9-20) mg/dL Creatinine (0.66-1.25) mg/dL Est GFR (CKD-EPI)AfAm (>60 ml/min/1.73 sqM) Est GFR (CKD-EPI)NonAf (>60 ml/min/1.73 sqM) Glucose (74-99) mg/dL Plasma Lactic Acid [place] (0.7-2.0) mmol/L Calcium (8.4-10.2) mg/dL Phosphorus (2.5-4.5) mg/dL Magnesium (1.6-2.3) mg/dL Total Bilirubin (0.2-1.3) mg/dL AST (17-59) U/L ALT (4-49) U/L Alkaline Phosphatase (38-126) U/L Ammonia (<30) umol/L Total Protein (6.3-8.2) g/dL Albumin (3.5-5.0) g/dL Amylase (30-110) U/L Lipase (23-300) U/L Urine Color Dark Yellow Urine Appearance Clear (Clear) Urine pH 6.5 (5.0-8.0) Ur Specific [place] 1.020 (1.001-1.035) Urine Protein Negative (Negative) Urine Glucose (UA) Negative (Negative) Urine Ketones Negative (Negative) Urine Blood Negative (Negative) Urine Nitrite Negative (Negative) Urine Bilirubin 2+ H (Negative) Urine Urobilinogen 4.0 (<2.0) mg/dL Ur Leukocyte Esterase Negative (Negative) Salicylates mg/dL Acetaminophen ug/mL Serum Alcohol mg/dL Coronavirus (PCR) (Not Detectd) Hepatitis A IgM Ab (Nonreactive) Hep Bs Antigen (Nonreactive) Hep B Core IgM Ab (Nonreactive) Hep C IgG Ab (Nonreactive) 09/24/21 09/24/21 09/24/21 Range/Units 18:43 18:43 21:09 WBC (3.8-10.6) k/uL RBC (4.30-5.90) m/uL Hgb (13.0-17.5) gm/dL Hct (39.0-53.0) % MCV (80.0-100.0) fL MCH (25.0-35.0) pg MCHC (31.0-37.0) g/dL RDW (11.5-15.5) % Plt Count (150-450) k/uL MPV Neutrophils % Neutrophils % (Manual) % Band Neuts % (Manual) % Lymphocytes % Lymphocytes % (Manual) % Monocytes % Monocytes % (Manual) % Eosinophils % Eosinophils % (Manual) % Basophils % Basophils % (Manual) % Neutrophils # Neutrophils # (Manual) (1.3-7.7) k/uL Lymphocytes # Lymphocytes # (Manual) (1.0-4.8) k/uL Monocytes # Monocytes # (Manual) (0-1.0) k/uL Eosinophils # Eosinophils # (Manual) (0-0.7) k/uL Basophils # Basophils # (Manual) (0-0.2) k/uL Nucleated RBCs (0-0) /100 WBC Manual Slide Review Hypochromasia Poikilocytosis (manual Target Cells Fragmented RBCs PT (9.0-12.0) sec INR (<1.2) APTT (22.0-30.0) sec Sodium 138 (137-145) mmol/L Potassium 4.4 (3.5-5.1) mmol/L Chloride 104 (98-107) mmol/L Carbon Dioxide 26 (22-30) mmol/L Anion Gap 8 mmol/L BUN 13 (9-20) mg/dL Creatinine 0.94 (0.66-1.25) mg/dL Est GFR (CKD-EPI)AfAm >90 (>60 ml/min/1.73 sqM) Est GFR (CKD-EPI)NonAf >90 (>60 ml/min/1.73 sqM) Glucose 134 H (74-99) mg/dL Plasma Lactic Acid Edward (0.7-2.0) mmol/L Calcium 9.0 (8.4-10.2) mg/dL Phosphorus (2.5-4.5) mg/dL Magnesium (1.6-2.3) mg/dL Total Bilirubin 6.5 H (0.2-1.3) mg/dL AST 1281 H (17-59) U/L ALT 2135 H (4-49) U/L Alkaline Phosphatase 186 H (38-126) U/L Ammonia (<30) umol/L Total Protein 7.1 (6.3-8.2) g/dL Albumin 3.9 (3.5-5.0) g/dL Amylase 64 (30-110) U/L Lipase 72 (23-300) U/L Urine Color Urine Appearance (Clear) Urine pH (5.0-8.0) Ur Specific [place] (1.001-1.035) Urine Protein (Negative) Urine Glucose (UA) (Negative) Urine Ketones (Negative) Urine Blood (Negative) Urine Nitrite (Negative) Urine Bilirubin (Negative) Urine Urobilinogen (<2.0) mg/dL Ur Leukocyte Esterase (Negative) Salicylates mg/dL Acetaminophen ug/mL Serum Alcohol mg/dL Coronavirus (PCR) Not Detected (Not Detectd) Hepatitis A IgM Ab Nonreactive (Nonreactive) Hep Bs Antigen Nonreactive (Nonreactive) Hep B Core IgM Ab Reactive A (Nonreactive) Hep C IgG Ab Reactive A (Nonreactive) 09/24/21 09/24/21 Range/Units 21:38 21:38 WBC (3.8-10.6) k/uL RBC (4.30-5.90) m/uL Hgb (13.0-17.5) gm/dL Hct (39.0-53.0) % MCV (80.0-100.0) fL MCH (25.0-35.0) pg MCHC (31.0-37.0) g/dL RDW (11.5-15.5) % Plt Count (150-450) k/uL MPV Neutrophils % Neutrophils % (Manual) % Band Neuts % (Manual) % Lymphocytes % Lymphocytes % (Manual) % Monocytes % Monocytes % (Manual) % Eosinophils % Eosinophils % (Manual) % Basophils % Basophils % (Manual) % Neutrophils # Neutrophils # (Manual) (1.3-7.7) k/uL Lymphocytes # Lymphocytes # (Manual) (1.0-4.8) k/uL Monocytes # Monocytes # (Manual) (0-1.0) k/uL Eosinophils # Eosinophils # (Manual) (0-0.7) k/uL Basophils # Basophils # (Manual) (0-0.2) k/uL Nucleated RBCs (0-0) /100 WBC Manual Slide Review Hypochromasia Poikilocytosis (manual Target Cells Fragmented RBCs PT (9.0-12.0) sec INR (<1.2) APTT (22.0-30.0) sec Sodium (137-145) mmol/L Potassium (3.5-5.1) mmol/L Chloride (98-107) mmol/L Carbon Dioxide (22-30) mmol/L Anion Gap mmol/L BUN (9-20) mg/dL Creatinine (0.66-1.25) mg/dL Est GFR (CKD-EPI)AfAm (>60 ml/min/1.73 sqM) Est GFR (CKD-EPI)NonAf (>60 ml/min/1.73 sqM) Glucose (74-99) mg/dL Plasma Lactic Acid Edward 0.6 L (0.7-2.0) mmol/L Calcium (8.4-10.2) mg/dL Phosphorus 4.5 (2.5-4.5) mg/dL Magnesium 2.0 (1.6-2.3) mg/dL Total Bilirubin (0.2-1.3) mg/dL AST (17-59) U/L ALT (4-49) U/L Alkaline Phosphatase (38-126) U/L Ammonia 31 H (<30) umol/L Total Protein (6.3-8.2) g/dL Albumin (3.5-5.0) g/dL Amylase (30-110) U/L Lipase (23-300) U/L Urine Color Urine Appearance (Clear) Urine pH (5.0-8.0) Ur Specific [place] (1.001-1.035) Urine Protein (Negative) Urine Glucose (UA) (Negative) Urine Ketones (Negative) Urine Blood (Negative) Urine Nitrite (Negative) Urine Bilirubin (Negative) Urine Urobilinogen (<2.0) mg/dL Ur Leukocyte Esterase (Negative) Salicylates <1.0 mg/dL Acetaminophen <10.0 ug/mL Serum Alcohol <10 mg/dL Coronavirus (PCR) (Not Detectd) Hepatitis A IgM Ab (Nonreactive) Hep Bs Antigen (Nonreactive) Hep B Core IgM Ab (Nonreactive) Hep C IgG Ab (Nonreactive) Disposition Clinical Impression: Acute hepatitis, Hyperbilirubinemia, Hyperammonemia Disposition: ADMITTED IP TO THIS HOSP Condition: Fair Is patient prescribed a controlled substance at d/c from ED?: No Referrals: None,Stated [Primary Care Provider] - 1-2 days
--- NOTE | 2021-09-25 03:16 | P.HPIM ---
History of Present Illness H&P Date: 09/24/21 Chief Complaint: jaundice 36-year-old male with history of IV drug abuse Patient was brought in from shelter(he has been there for 2 months) after one of the guards noticed that the patient is deeply jaundiced. Himself haven't noticed however he did notice over the past week that he's been having dark urine, he was told that his jaundice about 3 days ago. Otherwise he denies any fevers chills or headache denies any abdominal pain nausea vomiting or diarrhea he is not aware of any changes in his bowel movement color he denies any GI bleeding. He has been tested for HIV at shelter and was negative. Patient does admit to long history of IV drug abuse however he denies sharing needles but he does reuse his own needles. Patient also admits to sexual activity with multiple partners, females. He admits to unprotected sex He is not aware of any history of hepatitis C or B . He denies any sick contact with hepatitis patients. He denies any history of blood transfusion. He denies any history of recent travel outside the country. He denies any overdose on Tylenol or on the other medications he denies heavy alcohol intake. he denies smoking he does admit IV drug abuse. Blood work showed acute toxic liver with elevated AST /ALT in the thousands Hepatitis panel returned back positive showing evidence of acute hepatitis B infection and chronic hepatitis C Initial attempts of referring the patient due to unavailability of GI was not successful most facilities has declined patient transfer. Patient will be admitted for ID evaluation currently he seems to be stable Review of Systems Pertinent positives as noted in HPI. All other systems were reviewed and are negative Past Medical History Past Medical History: Hypertension, Skin Disorder, Thyroid Disorder Additional Past Medical History / Comment(s): Hep C, Hep B. 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 left pinky finger sx. Past Anesthesia/Blood Transfusion Reactions: No Reported Reaction Past Psychological History: ADD/ADHD, Anxiety, Bipolar, Depression, Panic Disorder, PTSD Smoking Status: Former smoker Past Alcohol Use History: Rare Past Drug Use History: Cocaine, Heroin, IV Drug Use, Marijuana, Methamphetamine, Opiates, Prescription Drug Abuse Additional Drug Use History / Comment(s): jul last use heroin - Past Family History Father Family Medical History: No Reported History Mother Family Medical History: Cancer Additional Family Medical History / Comment(s): lung cancer Medications and Allergies Home Medications Medication Instructions Recorded Confirmed Type Mirtazapine [Remeron] 30 mg PO HS 09/24/21 09/24/21 History QUEtiapine [SEROquel] 50 mg PO DAILY 09/24/21 09/24/21 History QUEtiapine [SEROquel] 100 mg PO HS 09/24/21 09/24/21 History hydrOXYzine pamoate [Vistaril] 100 mg PO TID 09/24/21 09/24/21 History Allergies Allergy/AdvReac Type Severity Reaction Status Date / Time No Known Allergies Allergy Verified 09/24/21 19:32 Physical Exam Vitals: Vital Signs Temp Pulse Pulse Resp BP BP Pulse Ox 09/25/21 02:21 98.7 F 62 18 117/74 97 09/25/21 02:04 64 20 127/80 97 09/24/21 17:30 98.8 F 78 20 159/81 100 Intake and Output 09/24/21 09/24/21 09/25/21 14:59 22:59 06:59 Other: Voiding Method Toilet Urinal Weight 90.718 kg 90.718 kg Constitutional: No acute distress, conversant, pleasant. 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 Eyes: Deeply jaundiced sclerae, moist conjunctiva, Pupils equal round reactive to light ENMT: NC/AT Oropharynx clear, no erythema, or exudates Neck: Supple, no masses, or JVD No carotid bruits No thyromegaly Lungs: Clear to auscultation Clear to percussion Normal respiratory effort, no accessory muscle use Cardiovascular: Heart regular in rate and rhythm, No murmurs, gallops, or rubs No peripheral edema Abdominal: Soft Nontender, no guarding, rebound or rigidity Abdomen moving with respiration Normoactive bowel sounds No hepatomegaly, No splenomegaly No palpable mass No abdominal wall hernia noted Skin: Normal temperature, tone, texture, turgor No induration No subcutaneous nodules No rash, lesions No ulcers Extremities: No digital cyanosis No clubbing Pedal pulses intact and symmetrical Radial pulses intact and symmetrical No calf tenderness Psychiatric: Alert and oriented to person, place and time Appropriate affect fair judgement Neuro Muscles Strength 5/5 in all 4 extremities Sensation to light touch grossly present throughout Cranial nerves II-XII grossly intact No focal sensory deficits Lymphatics: no palpable cervical or supraclavicular , or inguinal lymph nodes Results CBC & Chem 7: 09/24/21 18:43 09/24/21 18:43 Labs: Abnormal Lab Results - Last 24 Hours (Table) 09/24/21 09/24/21 09/24/21 Range/Units 18:43 18:43 18:43 Glucose 134 H (74-99) mg/dL Plasma Lactic Acid Edward (0.7-2.0) mmol/L Total Bilirubin 6.5 H (0.2-1.3) mg/dL AST 1281 H (17-59) U/L ALT 2135 H (4-49) U/L Alkaline Phosphatase 186 H (38-126) U/L Ammonia (<30) umol/L Urine Bilirubin 2+ H (Negative) Hep B Core IgM Ab Reactive A (Nonreactive) Hep C IgG Ab Reactive A (Nonreactive) 09/24/21 Range/Units 21:38 Glucose (74-99) mg/dL Plasma Lactic Acid Edward 0.6 L (0.7-2.0) mmol/L Total Bilirubin (0.2-1.3) mg/dL AST (17-59) U/L ALT (4-49) U/L Alkaline Phosphatase (38-126) U/L Ammonia 31 H (<30) umol/L Urine Bilirubin (Negative) Hep B Core IgM Ab (Nonreactive) Hep C IgG Ab (Nonreactive) Thrombosis Risk Factor Assmnt - Choose All That Apply Any of the Below Risk Factors Present?: Yes Each Factor Represents 1 point: Obesity (BMI >25) Other Risk Factors: No Other congenital or acquired thrombophilia - If yes, enter type in comment: No Thrombosis Risk Factor Assessment Total Risk Factor Score: 1 Thrombosis Risk Factor Assessment Level: Low Risk Assessment and Plan Assessment: Acute hepatitis B infection with underlying chronic hepatitis C Acute transaminitis Patient has history of IV drug abuse Patient has history of unprotected sex with women Patient is deeply jaundiced with dark urine, otherwise asymptomatic Avoid Tylenol and hepatotoxic meds Supportive care ID consultation Ultrasound of the liver unremarkable Supportive care IV fluid hydration Full code DVT prophylaxis heparin subcu 3 times a day Anticipated length of stay less than 2 midnights
[2021-09-25] MEDS: SODIUM CHLORIDE 0.9% 1,000 ML IV SCH ×3 (03:58→15:29)
[2021-09-25 07:04] LABS: Reactive Lymphocytes Present
[2021-09-25] MEDS: HEPARIN SODIUM,PORCINE/PF 5,000 UNIT/0.5 ML SYRINGE SQ SCH ×3 (07:12→23:47)
--- NOTE | 2021-09-25 12:14 | P.PN ---
Subjective Progress Note Date: 09/25/21 No new complaints today. Pending ID evaluation for hepatitis B. Objective - Vital Signs Vital signs: Vital Signs Temp 97.5 F L 09/25/21 07:00 Pulse 66 09/25/21 07:00 Resp 18 09/25/21 07:00 BP 144/73 09/25/21 07:00 Pulse Ox 97 09/25/21 07:00 Intake & Output 09/24/21 09/25/21 09/25/21 18:59 06:59 18:59 Weight 90.718 kg 90.718 kg Other: Voiding Method Toilet Toilet Urinal Urinal # Voids 0 - Exam Gen: awake, alert HEENT: normocephalic, atraumatic, good hearing acuity, moist mucous membranes, scleral icterus Resp: good air exchange, breathing comfortably with no accessory muscle use CVS: good distal perfusion x 4, GI: soft, NTTP, ND : no SPT, no CVAT, garces catheter not present MSK: no pitting edema, no clubbing, diffuse jaundice Neuro: non-focal, moving all extremities Psych: cooperative, euthymic mood - Labs CBC & Chem 7: 09/24/21 18:43 09/24/21 18:43 Labs: Abnormal Lab Results - Last 24 Hours (Table) 09/24/21 09/24/21 09/24/21 Range/Units 18:43 18:43 18:43 Glucose 134 H (74-99) mg/dL Plasma Lactic Acid Edward (0.7-2.0) mmol/L Total Bilirubin 6.5 H (0.2-1.3) mg/dL AST 1281 H (17-59) U/L ALT 2135 H (4-49) U/L Alkaline Phosphatase 186 H (38-126) U/L Ammonia (<30) umol/L Urine Bilirubin 2+ H (Negative) Hep B Core IgM Ab Reactive A (Nonreactive) Hep C IgG Ab Reactive A (Nonreactive) 09/24/21 Range/Units 21:38 Glucose (74-99) mg/dL Plasma Lactic Acid Edward 0.6 L (0.7-2.0) mmol/L Total Bilirubin (0.2-1.3) mg/dL AST (17-59) U/L ALT (4-49) U/L Alkaline Phosphatase (38-126) U/L Ammonia 31 H (<30) umol/L Urine Bilirubin (Negative) Hep B Core IgM Ab (Nonreactive) Hep C IgG Ab (Nonreactive) Assessment and Plan Assessment: Acute hepatitis B infection with underlying chronic hepatitis C Acute transaminitis Patient has history of IV drug abuse Patient has history of unprotected sex with women Patient is deeply jaundiced with dark urine, otherwise asymptomatic Avoid Tylenol and hepatotoxic meds Supportive care ID consultation Ultrasound of the liver unremarkable Supportive care IV fluid hydration Full code DVT prophylaxis heparin subcu 3 times a day Anticipated length of stay less than 2 midnights
--- NOTE | 2021-09-25 22:28 | P.CONS ---
History of Present Illness - Reason for Consult Consult date: 09/25/21 hepatitis B and C Requesting physician: Patria Carmona - Chief Complaint yellow discoloration of skin x 4 days - History of Present Illness of present illness : Patient is a 36-year-old male with a past medical history pertinent for IV drug use patient is currently incarcerated at [facility], [place], operated by [facility] for more than a month now the patient was brought into the ER for evaluation of discoloration of his skin which is turning yellow over the last 4 days patient mention about 6 days ago he noticed that his urine was getting more darker and patient mention he did have some chills but denies high- grade fever patient did mention that he was recently started on new medication Seroquel for his mental illness but no other medication patient on presentation to the hospital was afebrile did have a normal white count patient did have elevated liver enzymes patient did have a positive hepatitis B core IgM and hepatitis C IgG antibodies serum alcohol level was normal patient did have a gallbladder ultrasound no gallstones or no dilated ducts no focal liver deficit subsequently liver ultrasound was done as well did not mention any acute abnormality patient also have a CT of abdominal pelvis no radiographic abnormality some fluid around the gallbladder that could relate to cholecystitis no focal liver deficit infectious disease was consulted for his hepatitis and further treatment patient currently denies having any fever or chills, denies having any chest pain or shortness of breath or cough P denies having right upper quadrant pain no nausea no vomiting and no diarrhea Review of system: CONSTITUTIONAL: Positive for weakness did have some chills but denies high- grade fever. EYES: No complaint. ENT: No complaint. RESPIRATORY: No complaint. CARDIOVASCULAR: No complaint. GENITOURINARY: No complaint. GASTROINTESTINAL: As per history of present illness. MUSCULOSKELETAL: No complaint. INTEGUMENTARY: As per history of present illness. PSYCHOLOGIC: No complaint. ENDOCRINE: No complaint. NEUROLOGIC: No complaint. Past medical history : Reviewed, documented below Past surgical history : Reviewed, documented below Social history: Reviewed, documented below Medications: Reviewed, as documented below EXAMINATION: Vital sigans= Reviewed and documented below GENERAL DESCRIPTION: Middle-aged male lying in bed, no distress. No tachypnea or accessory muscle of respiration use. HEENT: Shows Pallor , scleral icterus positive. Oral mucous membrane is dry. NECK: Trachea central, no thyromegaly. LUNGS: Unlabored breathing. Clear to auscultation anteriorly. No wheeze or crackle. HEART: S1, S2, regular rate and rhythm. ABDOMEN: Soft, no tenderness , guarding or rigidity EXTREMITIES: No edema of feet. SKIN: No rash, no masses palpable. NEUROLOGICAL: The patient is awake, alert, oriented x3, mood and affect normal. LABS AND RADIOLOGY: Reviewed results see below Assessment : 1-Patient presented to hospital with a yellow discoloration of his skin in this patient symptom has been going on for about 4 days and did mention some chills and dark urine about 6 days ago with concern for acute hepatitis B infection as the patient has been in the half-way for more than 6 weeks, however guarded infection is questionable at this point 2-chronic hepatitis C in this patient who did have a history of IV drug use Plan: 1-we will obtain hepatitis B surface antibodies, hepatitis B E antibodies and antigen hepatitis B DNA 2-we will also check hepatitis C viral load and genotype 3-check HIV testing 4-monitoring his liver enzymes closely Treatment for acute hepatitis B is mostly supportive as more than 95% of patients will recover from it without any treatment We will follow on clinical condition and cultures to further adjust medication if needed Thank you for this consultation we will follow the patient along with you Past Medical History Past Medical History: Hypertension, Skin Disorder, Thyroid Disorder Additional Past Medical History / Comment(s): Hep C, Hep B. 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 left pinky finger sx. Past Anesthesia/Blood Transfusion Reactions: No Reported Reaction Past Psychological History: ADD/ADHD, Anxiety, Bipolar, Depression, Panic Disorder, PTSD Smoking Status: Former smoker Past Alcohol Use History: Rare Past Drug Use History: Cocaine, Heroin, IV Drug Use, Marijuana, Methamphetamine, Opiates, Prescription Drug Abuse Additional Drug Use History / Comment(s): jul last use heroin - Past Family History Father Family Medical History: No Reported History Mother Family Medical History: Cancer Additional Family Medical History / Comment(s): lung cancer Medications and Allergies Home Medications Medication Instructions Recorded Confirmed Type Mirtazapine [Remeron] 30 mg PO HS 09/24/21 09/24/21 History QUEtiapine [SEROquel] 50 mg PO DAILY 09/24/21 09/24/21 History QUEtiapine [SEROquel] 100 mg PO HS 09/24/21 09/24/21 History hydrOXYzine pamoate [Vistaril] 100 mg PO TID 09/24/21 09/24/21 History Allergies Allergy/AdvReac Type Severity Reaction Status Date / Time No Known Allergies Allergy Verified 09/24/21 19:32 Physical Exam Vitals: Vital Signs Temp Pulse Pulse Resp BP BP Pulse Ox 09/25/21 07:00 97.5 F L 66 18 144/73 97 09/25/21 02:21 98.7 F 62 18 117/74 97 09/25/21 02:04 64 20 127/80 97 09/24/21 17:30 98.8 F 78 20 159/81 100 Intake and Output 09/24/21 09/25/21 09/25/21 22:59 06:59 14:59 Other: Voiding Method Toilet Toilet Urinal Urinal # Voids 0 Weight 90.718 kg 90.718 kg Results CBC & Chem 7: 09/24/21 18:43 09/24/21 18:43 Labs: Abnormal Lab Results - Last 24 Hours (Table) 09/24/21 09/24/21 09/24/21 Range/Units 18:43 18:43 18:43 Glucose 134 H (74-99) mg/dL Plasma Lactic Acid Edward (0.7-2.0) mmol/L Total Bilirubin 6.5 H (0.2-1.3) mg/dL AST 1281 H (17-59) U/L ALT 2135 H (4-49) U/L Alkaline Phosphatase 186 H (38-126) U/L Ammonia (<30) umol/L Urine Bilirubin 2+ H (Negative) Hep B Core IgM Ab Reactive A (Nonreactive) Hep C IgG Ab Reactive A (Nonreactive) 09/24/21 Range/Units 21:38 Glucose (74-99) mg/dL Plasma Lactic Acid Edward 0.6 L (0.7-2.0) mmol/L Total Bilirubin (0.2-1.3) mg/dL AST (17-59) U/L ALT (4-49) U/L Alkaline Phosphatase (38-126) U/L Ammonia 31 H (<30) umol/L Urine Bilirubin (Negative) Hep B Core IgM Ab (Nonreactive) Hep C IgG Ab (Nonreactive)
[2021-09-26] MEDS: SODIUM CHLORIDE 0.9% 1,000 ML IV SCH ×3 (02:52→19:29)
[2021-09-26] MEDS: HEPARIN SODIUM,PORCINE/PF 5,000 UNIT/0.5 ML SYRINGE SQ SCH ×2 (08:28→16:09)
[2021-09-26 09:47] LABS: Basophils # (A) 0.07 X 10*3/uL (0.00-0.10); Basophils % (A) 0.9 %; Eosinophils # (A) 0.17 X 10*3/uL (0.04-0.35); Eosinophils % (A) 2.2 %; HCT 43.6 % (39.6-50.0); HGB 13.6 g/dL (13.0-17.0); Lymphocytes # (A) 2.83 X 10*3/uL (0.90-5.00); MCH 27.4 pg (27.0-32.0); MCHC 31.2 g/dL (32.0-37.0); MCV 87.7 fL (80.0-97.0); Mean Platelet Volume 11.5 fL (9.5-12.2); Monocytes # (A) 0.89 X 10*3/uL (0.20-1.00); Monocytes % (A) 11.6 %; Neutrophils # (A) 3.68 X 10*3/uL (1.80-7.70); Neutrophils % (A) 48.2 %; Platelet Count 262 X 10*3/uL (140-440); RBC 4.97 X 10*6/uL (4.40-5.60); RDW 16.6 % (11.5-14.5); WBC 7.65 X 10*3/uL (4.50-10.00)
[2021-09-26 09:57] LABS: Phosphorus 3.7 mg/dL (2.4-5.1)
[2021-09-26 10:21] LABS: African American GFR (CKD) 101.5 (60.0-200.0); Albumin 3.7 g/dL (3.8-4.9); Albumin/Globulin Ratio 1.54 (1.60-3.17); BUN/Creat Ratio 9.24 Ratio (12.00-20.00); Bilirubin, Conjugated 5.57 mg/dL (0.20-0.40); Bilirubin,Unconjugated 1.01 mg/dL (0.20-1.00); Blood Urea Nitrogen 9.9 mg/dL (9.0-27.0); Calcium 8.9 mg/dL (8.7-10.3); Carbon Dioxide 22.5 mmol/L (20.0-27.5); Globulin 2.4 g/dL (1.6-3.3); Non-African American GFR(CKD) 87.6 (60.0-200.0); Potassium 4.7 mmol/L (3.5-5.5); Total Bilirubin 6.6 mg/dL (0.30-1.20); Total Protein 6.1 g/dL (6.2-8.2)
--- NOTE | 2021-09-26 13:04 | P.PN ---
Subjective Progress Note Date: 09/26/21 No new complaints today. Pending HCV viral load and genotype. HIV test pending as well. Objective - Vital Signs Vital signs: Vital Signs Temp 97.8 F 09/26/21 07:00 Pulse 64 09/26/21 08:00 Resp 16 09/26/21 08:00 BP 128/57 09/26/21 07:00 Pulse Ox 98 09/26/21 07:00 Intake & Output 09/25/21 09/26/21 09/26/21 18:59 06:59 18:59 Intake Total 358 500 300 Balance 358 500 300 Intake: Oral 358 500 300 Other: Voiding Method Toilet Toilet Toilet Urinal # Voids 2 2 - Exam Gen: awake, alert HEENT: normocephalic, atraumatic, good hearing acuity, moist mucous membranes, scleral icterus Resp: good air exchange, breathing comfortably with no accessory muscle use CVS: good distal perfusion x 4, GI: soft, NTTP, ND : no SPT, no CVAT, garces catheter not present MSK: no pitting edema, no clubbing, diffuse jaundice Neuro: non-focal, moving all extremities Psych: cooperative, euthymic mood - Labs CBC & Chem 7: 09/26/21 06:18 09/26/21 06:18 Labs: Abnormal Lab Results - Last 24 Hours (Table) 09/26/21 09/26/21 Range/Units 06:18 06:18 MCHC 31.2 L (32.0-37.0) g/dL RDW 16.6 H (11.5-14.5) % Anion Gap 9.00 L (10.00-18.00) mmol/L BUN/Creatinine Ratio 9.24 L (12.00-20.00) Ratio Total Bilirubin 6.60 H (0.30-1.20) mg/dL Conjugated Bilirubin 5.57 H (0.20-0.40) mg/dL Unconjugated Bilirubin 1.01 H (0.20-1.00) mg/dL AST 1038 H (14-35) U/L ALT 1876 H (10-49) U/L Alkaline Phosphatase 207 H (41-126) U/L Total Protein 6.1 L (6.2-8.2) g/dL Albumin 3.7 L (3.8-4.9) g/dL Albumin/Globulin Ratio 1.54 L (1.60-3.17) g/dL Assessment and Plan Assessment: Acute hepatitis B infection with underlying chronic hepatitis C Acute transaminitis Patient has history of IV drug abuse Patient has history of unprotected sex with women Patient is deeply jaundiced with dark urine, otherwise asymptomatic Avoid Tylenol and hepatotoxic meds Supportive care ID consultation Ultrasound of the liver unremarkable Supportive care IV fluid hydration Full code DVT prophylaxis heparin subcu 3 times a day Anticipated length of stay less than 2 midnights
--- NOTE | 2021-09-26 17:46 | PN ---
PROGRESS NOTE DATE OF SERVICE: 09/26/2021 REASON FOR FOLLOWUP: Acute hepatitis B infection. INTERVAL HISTORY: The patient is afebrile. The patient is breathing comfortably. Mentioned not feeling that good though. No chest pain, shortness of breath or cough. No abdominal pain or diarrhea. PHYSICAL EXAMINATION: Blood pressure 132/67, pulse 72, temperature 98.2. He is 98% on room air. General description is a middle-aged male lying in bed in no distress. Respiratory system: Unlabored breathing, clear to auscultation anteriorly. Heart S1, S2. Regular rate and rhythm. Abdomen soft, no tenderness. Extremities: No edema of the feet. LABS: Hemoglobin is 13.6, creatinine 1.1. Bilirubin slightly up however, AST and ALT trending down. DIAGNOSTIC IMPRESSION AND PLAN: Patient admitted to the hospital with jaundice source is likely combination of chronic hepatitis and acute hepatitis B infection. Some of the serologies currently pending. Treatment is mostly supportive, avoid hepatoxic medication. Continue supportive care. MMODL / IJN: [id number] /
[2021-09-26 20:31] LABS: HIV 2 AB Non-Reactive (Non-Reactive); HIV AB P24 Non-Reactive (Non-Reactive); HIV P24 AG Non-Reactive (Non-Reactive)
[2021-09-27] MEDS: HEPARIN SODIUM,PORCINE/PF 5,000 UNIT/0.5 ML SYRINGE SQ SCH ×3 (00:51→16:38)
[2021-09-27] MEDS: SODIUM CHLORIDE 0.9% 1,000 ML IV SCH ×3 (03:36→17:39)
[2021-09-27 05:44] LABS: Hepatitis BE Antibody REACTIVE (Nonreactive); Hepatitis BE Antigen Nonreactive (Nonreacitve)
--- NOTE | 2021-09-27 13:12 | P.PN ---
Subjective Progress Note Date: 09/27/21 Pt doing okay today. Reports feeling tired, but otherwise no complaints. Pending HCV viral load and genotype. Objective - Vital Signs Vital signs: Vital Signs Temp 97.5 F L 09/27/21 07:00 Pulse 55 L 09/27/21 08:00 Resp 16 09/27/21 08:00 BP 107/59 09/27/21 07:00 Pulse Ox 96 09/27/21 07:00 Intake & Output 09/26/21 09/27/21 09/27/21 18:59 06:59 18:59 Intake Total 600 1000 Balance 600 1000 Intake: Oral 600 1000 Other: Voiding Method Toilet Toilet Toilet # Voids 3 2 - Exam Gen: awake, alert HEENT: normocephalic, atraumatic, good hearing acuity, moist mucous membranes, scleral icterus Resp: good air exchange, breathing comfortably with no accessory muscle use CVS: good distal perfusion x 4, GI: soft, NTTP, ND : no SPT, no CVAT, garces catheter not present MSK: no pitting edema, no clubbing, diffuse jaundice Neuro: non-focal, moving all extremities Psych: cooperative, euthymic mood - Labs CBC & Chem 7: 09/26/21 06:18 09/26/21 06:18 Labs: Abnormal Lab Results - Last 24 Hours (Table) 09/26/21 Range/Units 06:18 Hepatitis Be Antibody REACTIVE A (Nonreactive) Assessment and Plan Assessment: Acute hepatitis B infection with underlying chronic hepatitis C Acute transaminitis Patient has history of IV drug abuse Patient has history of unprotected sex with women Patient is deeply jaundiced with dark urine, otherwise asymptomatic Avoid Tylenol and hepatotoxic meds Supportive care ID consultation Ultrasound of the liver unremarkable Supportive care IV fluid hydration Full code DVT prophylaxis heparin subcu 3 times a day Anticipated length of stay less than 2 midnights
[2021-09-27 13:57] LABS: Albumin 3.6 g/dL (3.8-4.9); Albumin/Globulin Ratio 1.42 (1.60-3.17); Bilirubin, Conjugated 5.04 mg/dL (0.20-0.40); Bilirubin,Unconjugated 1.72 mg/dL (0.20-1.00); Globulin 2.5 g/dL (1.6-3.3); Total Bilirubin 6.8 mg/dL (0.30-1.20); Total Protein 6.1 g/dL (6.2-8.2)
--- NOTE | 2021-09-27 20:50 | PN ---
PROGRESS NOTE DATE OF SERVICE: 09/27/2021 REASON FOR FOLLOWUP: Acute hepatitis B and chronic hepatitis C. INTERVAL HISTORY: The patient is afebrile. The patient is breathing comfortably. The patient has been complaining of some right upper quadrant abdominal pain. Some nausea but no vomiting. No chest pain, shortness of breath or cough. PHYSICAL EXAMINATION: Blood pressure 120/72, pulse of 56, temperature 98.5. She is 98% on room air. General description is a middle-aged male lying in bed in no distress. Respiratory system: Unlabored breathing. Clear to auscultation anteriorly. Heart S1, S2. Regular rate and rhythm. Abdomen soft, no tenderness. Extremities with no edema of the feet. LABS: Bilirubin is 20. Elevated however, ALT is trending down. The patient's hepatitis B e antibody is positive. Antigen is negative negative. DIAGNOSTIC IMPRESSION AND PLAN: 1. Patient with acute hepatitis B in this patient who seems to have cleared his sepsis as well as and will likely recover from the illness without need for any antiviral. Continue supportive treatment. Avoid hepatotoxic medication. 2. Patient with chronic hepatitis C. Patient will need outpatient followup for treatment of the same. MMODL / IJN: [id number] /
[2021-09-28] MEDS: HEPARIN SODIUM,PORCINE/PF 5,000 UNIT/0.5 ML SYRINGE SQ SCH ×2 (01:01→08:33)
[2021-09-28] MEDS: SODIUM CHLORIDE 0.9% 1,000 ML IV SCH ×2 (01:11→08:18)
[2021-09-28 08:47] VITALS: BP 115/68; PULSE 62; RESP 18; TEMP 97.6
--- NOTE | 2021-09-28 13:42 | P.DS ---
Providers Date of admission: 09/25/21 00:45 Expected date of discharge: 09/28/21 Attending physician: Shiraz Mesa MD Consults: 09/25/21 03:09 Consult Physician Routine Consulting Provider: Corey Mixon Consult Reason/Comments: acute Hep B , chronic Hep C infection Do you want consulting provider notified?: Yes, Notify in am Primary care physician: Stated None Hospital Course: Acute hepatitis B infection with underlying chronic hepatitis C Acute transaminitis Patient admitted with jaundice with hx of IV drug abuse and unprotected sex with woman. He tested positive for Hep B infection and ID was consulted for Hep C infection. HCV viral load and genotype were pending at time of discharge. Pt remained stable with no complaints during hospitalization except for generalized fatigue. Pt was advised that hep B infection was self limiting and no specific treatment. He was advised that there is tx for HCV if he has high viral load, but that it was not an inpatient treatment and this would need to be followed up. Assessment: Gen: awake, alert HEENT: normocephalic, atraumatic, good hearing acuity, moist mucous membranes Resp: good air exchange, breathing comfortably with no accessory muscle use CVS: good distal perfusion x 4, GI: soft, NTTP, ND : no SPT, no CVAT, garces catheter not present MSK: no pitting edema, no clubbing, jaundiced, scleral icterus Neuro: non-focal, moving all extremities Psych: cooperative, euthymic mood Patient Condition at Discharge: Good Plan - Discharge Summary Discharge Rx Participant: No New Discharge Prescriptions: Continue QUEtiapine [SEROquel] 100 mg PO HS QUEtiapine [SEROquel] 50 mg PO DAILY hydrOXYzine pamoate [Vistaril] 100 mg PO TID Mirtazapine [Remeron] 30 mg PO HS Discharge Medication List Mirtazapine [Remeron] 30 mg PO HS 09/24/21 [History] QUEtiapine [SEROquel] 50 mg PO DAILY 09/24/21 [History] QUEtiapine [SEROquel] 100 mg PO HS 09/24/21 [History] hydrOXYzine pamoate [Vistaril] 100 mg PO TID 09/24/21 [History] Follow up Appointment(s)/Referral(s): None,Stated [Primary Care Provider] - 1-2 days Patient Instructions/Handouts: Hepatitis C (DC), Hepatitis B (DC) Discharge Disposition: HOME SELF-CARE
[2021-09-28 14:34] LABS: Hepatitis B Virus DNA Not detected (Not detected); Hepatitis B Virus DNA, Quant <10 IU/mL (<10); Log HBV IU/mL <1.00 (<1.00)
--- NOTE | 2021-09-28 14:51 | PN ---
PROGRESS NOTE DATE OF SERVICE: 09/28/2021 REASON FOR FOLLOWUP: 1. Acute hepatitis B. 2. Chronic hepatitis . INTERVAL HISTORY: The patient was afebrile this morning. The patient has been afebrile. The patient denies having any chest pain, shortness of breath or cough. No nausea, no vomiting. No abdominal pain or diarrhea. PHYSICAL EXAMINATION: Blood pressure 115/60 with a pulse of 62, temperature . He is 98% on room air. General description is a middle-aged male lying in bed in no distress. Respiratory system: Unlabored breathing. Clear to auscultation anteriorly. Heart S1, S2. Regular rate and rhythm. Abdomen soft, no tenderness. LABS: No new labs have been obtained today. DIAGNOSTIC IMPRESSION AND PLAN: Patient with acute hepatitis B in this patient who did have overall improvement in his liver enzymes pattern, from which the patient will recover from hepatitis B, as the patient has cleared his hepatitis B as well as with negative blood work in 12 weeks, and to follow up in the outpatient setting. Multiple questions and concerns were answered. MMODL / IJN: [id number] /
[2021-10-03 11:57] LABS: HCV Qualitative Result DETECTED (Not detected)
== END 2021-09-28 12:33 | disposition home or self-care (01) ==
LOC: EC 17:22 → 6NMEDSUR 09-25 00:45
PROVIDERS: ADMIT Internal Medicine; ATTEND Internal Medicine
DX: B16.9 Acute hepatitis B without delta-agent and without hepatic coma (principal); B18.2 Chronic viral hepatitis C; I10 Essential (primary) hypertension; R14.0 Abdominal distension (gaseous); Z20.822 Contact with and (suspected) exposure to COVID-19; E72.20 Disorder of urea cycle metabolism, unspecified; E66.9 Obesity, unspecified; Z68.27 Body mass index [BMI] 27.0-27.9, adult; F90.9 Attention-deficit hyperactivity disorder, unspecified type; F43.10 Post-traumatic stress disorder, unspecified; F41.0 Panic disorder [episodic paroxysmal anxiety]; F31.9 Bipolar disorder, unspecified; E07.9 Disorder of thyroid, unspecified; Z79.899 Other long term (current) drug therapy; Z89.022 Acquired absence of left finger(s); Z87.891 Personal history of nicotine dependence; L98.9 Disorder of the skin and subcutaneous tissue, unspecified; Z72.51 High risk heterosexual behavior; Z87.898 Personal history of other specified conditions; Z80.1 Family history of malignant neoplasm of trachea, bronchus and lung
CPT/HCPCS: 99285; 96360; 96361 ×3; 96372 ×4; 36415; 87350; 86707; 87522; 80053 ×2; 80076; 80074; 87517; 87902; 82140; 82150; 82248; 83605; 83690 ×2; 83735 ×2; 84100 ×2; 85025 ×2; 85610; 85730; 81003; 80143; 87390; 87635; 80179; 93976; 76705 ×2; 74174; G0378 ×4; G0480; Q9967; J1644 ×4; 80320